=== PATIENT | female | born 1985 ===

== ENCOUNTER 2017-11-09 21:56 | Emergency (ER) | payer BC ==
[2017-11-09 22:08] VITALS: BP 124/75; PULSE 79; TEMP 98.6; BMI 33.0
--- NOTE | 2017-11-09 22:14 | PDOC ---
History of Present Illness - General Chief Complaint: Pain Stated Complaint: PAIN Time Seen by Provider: 11/09/17 21:58 - History of Present Illness Initial Comments: This 32-year-old woman, 1 week () at [facility] in [place] presents with ongoing pain in the lower abdominal incision site, bilateral lower extremity edema and headache. Patient states that she was discharged from the hospital on November 06 (4 days after giving ) . 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 She also has had bilateral lower extremity edema and mild discomfort without significant tenderness. Also, patient has had generalized headache which continues despite her [id number] analgesics. Of note, the patient was diagnosed with cerebral aneurysms 2010. She states that her neurosurgeon has assured her that these are "stable". She had MRA prior to child and she states that this showed no evidence of aneurysmal bleeding or other abnormality. Past History - Past Medical History Allergies/Adverse Reactions: Allergies Allergy/AdvReac Type Severity Reaction Status Date / Time No Known Allergies Allergy Unverified 11/09/17 21:57 Home Medications: Ambulatory Orders Acetaminophen [Tylenol -] 1,000 mg PO Q6H PRN 11/09/17 Ibuprofen 600 mg PO PRN PRN 11/09/17 Oxycodone HCl 20 mg PO Q4HWA PRN 11/09/17 COPD: No - Suicide/Smoking/Psychosocial Hx Smoking History: Never smoked *Physical Exam - Vital Signs Last Vital Signs Temp Pulse Resp BP Pulse Ox 98.6 F 79 18 124/75 98 11/09/17 22:00 11/09/17 22:00 11/09/17 22:00 11/09/17 22:00 11/09/17 22:00 Medical Decision Making - Medical Decision Making Prior to full examination, noncontrast head CT was ordered; this was planned in order to evaluate for aneurysmal bleed quickly since patient had headache not responsive to strong pain medication. Patient refused CT. Soon after this, prior to full examination and any further evaluation, patient stated that she had fully read her discharge instructions and decided to leave in order to return to [facility] because "there was a whole floor" for patients there. Since patient was stable and fully oriented, she will be discharged with instructions to go to [facility] ED immediately. *DC/Admit/Observation/Transfer Diagnosis at time of Disposition: Leg edema, headache - Discharge Dispostion Disposition: HOME Condition at time of disposition: Stable - Referrals Referrals: ON STAFF,NOT [Primary Care Provider] - - Patient Instructions Additional Instructions: followup now at ED [facility] - Post Discharge Activity
== END 2017-11-09 23:15 | disposition home or self-care (01) ==
LOC: FER 21:56
DX: M79.89 Other specified soft tissue disorders (principal); G44.89 Other headache syndrome
CPT/HCPCS: 99281-25